=== PATIENT | female | born 1990 | race African-American/Black ===

== ENCOUNTER 2018-11-06 10:26 | Outpatient (RCR) | payer OTHER | END 2018-12-08 14:24 | LOC: WSOT 10:26 | DX: S63.591A Other specified sprain of right wrist, initial encounter (principal) | CPT/HCPCS: 24091; A6549 ==

== ENCOUNTER → 2018-12-03 | Outpatient (CLI) | payer OTHER | LOC: COL.RAD 13:31 | DX: S63.591D Other specified sprain of right wrist, subsequent encounter (principal) ==

== ENCOUNTER 2018-12-08 14:25 | Outpatient (RCR) | payer OTHER | END 2018-12-18 13:44 | disposition home or self-care (01) | LOC: WSOH 14:25 → WSOT 14:30 → WSOH 12-18 13:44 | DX: S63.591D Other specified sprain of right wrist, subsequent encounter (principal) ==

== ENCOUNTER → 2020-02-01 | Outpatient (CLI) | payer BC | LOC: COL.RAD 13:15 | DX: M65.88 Other synovitis and tenosynovitis, other site (principal); M85.852 Other specified disorders of bone density and structure, left thigh ==

== ENCOUNTER 2020-02-23 12:45 | Outpatient (RCR) | payer BC | END 2020-04-14 15:43 | disposition home or self-care (01) | LOC: MKS.ESL.PT 12:45 | DX: S81.002D Unspecified open wound, left knee, subsequent encounter (principal) | CPT/HCPCS: G0283-GP ==

== ENCOUNTER → 2020-05-08 | Outpatient (RCR) | payer BC | END | disposition home or self-care (01) | LOC: MKS.ESL.PT | DX: M79.605 Pain in left leg (principal) | CPT/HCPCS: G0283-GP ==

== ENCOUNTER 2020-06-26 13:00 | Outpatient (RCR) | payer BC | END 2020-07-04 09:09 | disposition home or self-care (01) | LOC: MKS.ESL.PT 13:00 | DX: M79.662 Pain in left lower leg (principal); M25.562 Pain in left knee ==

== ENCOUNTER 2020-12-25 10:30 | Outpatient (RCR) | payer BC | END 2020-12-26 | disposition home or self-care (01) | LOC: MKS.ESL.PT | DX: Z98.890 Other specified postprocedural states (principal) ==

== ENCOUNTER 2021-01-17 12:45 | Outpatient (RCR) | payer BC | END 2021-01-18 07:59 | disposition home or self-care (01) | LOC: MKS.ESL.PT 12:45 | DX: Z98.890 Other specified postprocedural states (principal) ==